=== PATIENT | male | born 1990 | race African-American/Black ===

== ENCOUNTER 2017-02-02 17:45 | Emergency (ER) ==
[2017-02-02 18:34] LABS: URINE CULTURE PL NEEDED? NO; URINE SOURCE VOIDED
[2017-02-02 18:54] LABS: BILIRUBIN URINE NEGATIVE (NEGATIVE); BLOOD URINE 1+ (NEGATIVE); CLARITY CLEAR (CLEAR); COLOR YELLOW; GLUCOSE URINE NEGATIVE (NEGATIVE); LEUKOCYTES URINE NEGATIVE (NEGATIVE); NITRITE URINE NEGATIVE (NEGATIVE); PH URINE 6.5; PROTEIN URINE NEGATIVE (NEGATIVE); SP GRAVITY URINE 1.015; UROBILINOGEN URINE NORMAL
[2017-02-02 18:59] LABS: URINE EPITHELIAL CELLS <10 /HPF (<10); URINE RBC <10 /HPF (<10); URINE WBC <10 /HPF (<10)
[2017-02-02] MEDS ORDERED: ZITHROMAX PO ONE (19:10)
[2017-02-02] MEDS ORDERED: XYLOCAINE-MPF 1% INJ ONE (19:10)
[2017-02-02] MEDS ORDERED: ROCEPHIN IM ONE (19:10)
--- NOTE | 2017-02-02 19:11 | PROVIDER DOCUMENTATION ---
HPI-Male Problem - General Chief Complaint: UTI Symptoms Stated Complaint: POSS STD Time Seen by Provider: 02/02/17 19:05 Source: patient Allergies/Adverse Reactions: Patient Allergies Allergy/AdvReac Type Severity Reaction Status Date / Time No Known Allergies Allergy Verified 02/02/17 18:23 Home Medications: Home Medication List Medication Instructions Recorded Confirmed Last Taken Type No Home Medications 02/02/17 02/02/17 Unknown History - History of Present Illness-Male Nature of Presenting Problem: 26 yom had unprotected sex yesterday. Pt states, "Today I jsut don't feel right down there." Location of Complaint: reports: urethral Radiation: reports: none Quality of Pain: reports: burning Severity in ED: reports: mild Onset/Duration: reports: abrupt Timing: reports: still present, getting worse Context/Activities at Onset: reports: none Urinary Symptoms: reports: dysuria Sexual intercourse history: reports: Multiple Partners Contraception: reports: none Associated Symptoms: reports: none. denies: blood in ejaculate, problems with erection, unable to retract foreskin, inguinal mass, penile discharge, penile pain/swelling, pain/swelling in testicle, unable to replace foreskin, other Similar Symptoms Previously?: No Recently seen or treated by another doctor?: No Review of Systems - Adult - REVIEW OF SYSTEMS - ADULT Constitutional: reports: see HPI. denies: no symptoms reported, chills, fever, fatique, night sweats, weight gain, weight loss, other Eyes: reports: no symptoms reported. denies: see HPI, discharge, dry eyes, decreased vision, blurred vision, double vision, eye pain, redness, other Ears, Nose, Mouth & Throat: reports: no symptoms reported. denies: see HPI, ear discharge, ear pain, hearing loss, tinnitus, epistaxis, sinus problem, nose pain, loose teeth, mouth/dental pain, mouth swelling, hoarseness, throat pain, throat swelling, other Cardiovascular: reports: no symptoms reported. denies: see HPI, chest pain, edema, heart murmur, irregular heart rate, orthopnea, palpitations, poor circulation, PND, syncope, other Respiratory: reports: no symptoms reported. denies: see HPI, chronic cough, cough, dyspnea on exertion, excessive sputum production, hemoptysis, pleurisy, shortness of breath, wheezing, other Gastrointestinal: reports: no symptoms reported. denies: see HPI, abdominal pain, hematemesis, constipation, diarrhea, difficulty swallowing, frequent heartburn, nausea, poor appetite, rectal bleeding, vomiting, other Genitourinary: reports: see HPI, dysuria. denies: no symptoms reported, discharge, frequency, flank pain, frequent UTI's, hematuria, hesitency, incontinence, urinary retention, urgency, other Musculoskeletal: reports: no symptoms reported. denies: see HPI, bone pain, back pain, frequent leg cramps, joint pain, joint swelling, muscle aches, muscle weakness, neck pain, other Integumentary: reports: no symptoms reported. denies: see HPI, hives, hair loss , itching, mole changes, nail changes, rash, skin sores/ulcer, skin thickening, other All Other Systems: Reviewed and Negative Past History - Adult - PAST MEDICAL HISTORY-ADULT Review of Records: reports: Old Records Reviewed, Nursing Assessment Review, Medications Reviewed, Social history reviewed & non-contributory. Physical Exam-General - PHYSICAL EXAM-ADULT Initial Vital Signs Reviewed: Yes - CONSTITUTIONAL General Appearance: appears well, alert, no apparent distress. negative: mild distress, moderate distress, severe distress, cachetic, obese, thin, anxious, lethargic, slow to respond, obtunded, combative, other - EYES Eyes: PERRL/EOMI, pink conjunctivae. negative: fundi clear, no AV nicking, anisocoria, conjuctival exudate, EOM palsy, meningismus, pale conjunctivae, photophobia, sclera injected, scleral icterus, subconjunctival hemorrhage, sunken eyes, other - HEAD, EARS, NOSE, MOUTH & THROAT HENMT: normocephalic/atraumatic, moist mucous membranes, normal ENT inspection, TMs normal, pharynx normal. negative: angioedema, dental decay, hearing deficit , pharyngeal erythema, tonsillar exudate, TM abnormal, TM obscurred by cerumen, frontal tenderness, maxillary tenderness, other - NECK Neck: non-tender, full range of motion, supple, normal inspection. negative: Brudzinski's sign, carotid bruit, C-spine tenderness, limited range of motion, lymphadenopathy, meningismus, trachial deviation, tender lateral, tender midline , thyromegaly, other - RESPIRATORY Respiratory: chest non-tender, lungs clear, normal breath sounds, no pleuratic chest pain, no respiratory distress, no accessory muscle use. negative: respiratory distress, decreased breath sounds, accessory muscle use, crackles, rales, rhonchi, stridor, wheezing, dull on percussion, prolonged expiration, pain on inspiration, plerual rub, retractions, splinting, decreased rate, increased rate, crepitus, other - CARDIOVASCULAR Cardiovascular: normal peripheral pulses, regular rate, rhythm, no edema, no gallop, no JVD, no murmur. negative: JVD, bradycardia, tachycardia, diastolic murmur, systolic murmur, gallop/S3, gallop/S4, extra beats, friction rub, irregularly irregular, PMI displaced laterally, other - GASTROINTESTINAL (ABDOMEN) Abdominal Exam: normal bowel sounds, non tender, soft, no organomegaly, no pulsatile mass. negative: abdominal bruit, abnormal bowel sounds, distended, guarding, rigid, rebound, tenderness, hernia, mass, hepatomegaly, spleenomegaly , McBurney's point tenderness, Barkley's sign, obturator sign, prominent aortic pulsations, psoas, Rovsing's sign, other - GENITOURINARY Male Genitalia: normal genitalia, urethral discharge - LYMPHATIC Lymphatic: no adenopathy - MUSCULOSKELETAL Back Exam: normal inspection, no CVA tenderness, no vertebral tenderness Extremity: normal range of motion, non-tender, normal gait, normal inspection, no pedal edema, no calf tenderness, normal capillary refill - SKIN Integumentary: normal color, normal turgor - NEUROLOGIC Neurologic: grossly normal - PSYCHIATRIC Psych/Mental Status: oriented x 3 Progress - PLAN OF CARE/RESULTS Progress/Plan/Lab Results: Laboratory Tests 02/02/17 18:21 Urine Source VOIDED Urine Color YELLOW Urine Clarity CLEAR Urine pH 6.5 Ur Specific Bath 1.015 Urine Protein NEGATIVE Urine Ketones NEGATIVE Urine Blood 1+ A Urine Nitrite NEGATIVE Urine Bilirubin NEGATIVE Urine Urobilinogen NORMAL Urine Microscopic RBC <10 Urine WBC NEGATIVE Urine Microscopic WBC <10 Ur Epithelial Cells <10 Urine Glucose NEGATIVE Orders Category Date Time Status UA [URINALYSIS PL W/POSS RFLX CULT] [URINALYSIS] Stat Lab 02/02/17 18:21 Completed Azithromycin [Zithromax] Med 02/02/17 19:10 Discontinued 1,000 mg PO NOW ONE CefTRIAXONE [Rocephin] Med 02/02/17 19:10 Discontinued 250 mg IM NOW ONE Lidocaine 1% Pf [Xylocaine-Mpf 1%] Med 02/02/17 19:10 Discontinued 5 ml INJ NOW ONE Vital Signs Temp Pulse Resp BP Pulse Ox 02/02/17 19:19 98.9 F 66 18 137/97 96 02/02/17 18:20 99.2 F 75 18 144/81 100 No Known Allergies Allergy (Verified 02/02/17 18:23) No Home Medications 02/02/17 Laboratory 02/02/17 18:21 Urine Source VOIDED Urine Color YELLOW Urine Clarity CLEAR Urine pH 6.5 Ur Specific Bath 1.015 Urine Protein NEGATIVE Urine Ketones NEGATIVE Urine Blood 1+ A Urine Nitrite NEGATIVE Urine Bilirubin NEGATIVE Urine Urobilinogen NORMAL Urine Microscopic RBC <10 Urine WBC NEGATIVE Urine Microscopic WBC <10 Ur Epithelial Cells <10 Urine Glucose NEGATIVE Departure - Departure Time of Disposition Order: 19:09 DIAGNOSIS: Sexually transmitted disease (STD) Disposition: HOME 01 Certified Medical Emergency: Emergent Condition: Stable Additional Instructions: Remember to use condoms to prevent infection. Follow up with health department for any further symptoms. ED Follow Up Instructions: You have been treated by a care provider in the Emergency Department. These instructions are being provided to you so you can have an understanding of how to care for yourself upon discharge. Upon discharge from the Emergency Department, you are responsible for making arrangements for follow-up care by a physician of your choice. Take all prescribed medications as directed. Return to the Emergency Department immediately for any new or worsening symptoms. You may call the Physician Referral phone number at [phone] to obtain a list of Physicians who are taking new patients. Referrals: None,PCP [Primary Care Provider] - Alison Guevara MD [STAFF PHYSICIAN] - Forms: Return to School/Parent Work Instructions: Sexually Transmitted Disease, [id number] Attestation - Physician/ AYALA Attestation Patient care was provided by Advanced Practice Provider:: Yes Advanced Practice Provider:: Glenn Childers Advanced Practice Provider documentation review:: The Mid-level provider documentation, treatment plan and medical decision making was reviewed by the physician who agrees with all treatment and medical decision making by the [facility]. Physician Attestation - Physician Attestation I, the provider, attest to the following statement:: Rhys Mancuso Physician documentation Attestation:: This documentation recorded by the scribe accurately reflects the service I personally performed and the decisions made by me.
[2017-02-02 19:27] VITALS: BP 137/97
== END 2017-02-02 19:36 | disposition home or self-care (01) ==
LOC: P.ED 17:45
DX: A64 Unspecified sexually transmitted disease (principal); R30.0 Dysuria
CPT/HCPCS: 81001; 96372; J0696